=== PATIENT | male | born 1970 | race Two or more races ===

== ENCOUNTER 2025-05-09 09:39 | Emergency (ER) | payer MEDICAID, OTHER ==
[~2025-05-09] VITALS: Ht 167.6 cm; Wt 82.0 kg
[2025-05-09] MEDS: SODIUM CHLORIDE 0.9% 1,000 ML IV ONE (10:53)
[2025-05-09 11:06] LABS: Hematocrit 52.7 % (41.0-53.0); Hemoglobin 17.9 g/dL (13.5-17.5); Mean Corpuscular Hemoglobin 29.3 pg (28.0-32.0); Mean Corpuscular Volume 85.9 fL (80.0-100.0); Nucleated Red Blood Cells % 0.1 %
[2025-05-09 11:13] LABS: Chloride 104 mmol/L (98-107); Potassium 3.8 mmol/L (3.5-5.1); Sodium 142 mmol/L (136-145)
[2025-05-09 11:14] VITALS: BP 132/83; PULSE 79; RESP 18; TEMP 98.7; O2SAT 97
[2025-05-09 11:14] LABS: Anion Gap 9 (5-15); Calcium 9.6 mg/dL (8.7-10.4); Carbon Dioxide 29 mmol/L (20-31)
[2025-05-09 11:19] LABS: BUN/Creatinine Ratio 13.6 (10.0-20.0); Blood Urea Nitrogen 19 mg/dL (9-23); Glucose 104 mg/dL (74-106)
--- NOTE | 2025-05-09 11:19 | ED.PDOC ---
HPI (NEURO) HPI Comments 54 y/o M with a history of hypertension brought in by EMS from home after a syncopal episode. Patient states he was working outside laying concrete in the heat when he began to feel lightheaded, broke out in a cold sweat, then felt as if he was going to pass out. He told his to call 911. He states he has had 2 similar previous episodes in the past where he actually fainted, so was able to get to the ground without injuring himself. EMS administered IV normal saline, and now the patient states he feels better. He denies any recent illness, chest pain, shortness of breath, vision changes or focal weakness. Chief Complaint: General Weakness Time Seen by MD: 10:30 Reviewed Notes: Nurses Notes, Medications, Allergies Information Source: Patient Mode of Arrival: Ambulatory Past Medical History PAST MEDICAL HISTORY: HTN Surgical History: Denies all surgeries Family History Family History: Unknown Social History Smoker: Non-Smoker Alcohol: Denies ETOH Use Drugs: Denies Drug Use Lives In: Home All Other Systems: Reviewed and Negative (Comprehensive systems review obtained and negative except for what is stated in the HPI.) Physical Exam General Appearance: No Apparent Distress HEENT: Other (Pupils and face symmetric. Moist mucous membranes.) Neck: Full Range of Motion, Normal Inspection Respiratory: Lungs Clear, No Accessory Muscle Use, No Respiratory Distress, Normal Breath Sounds Cardiovascular: No Edema, No JVD, Regular Rate/Rhythm Breast Exam: Deferred Gastrointestinal: Non Tender, Soft Genitalia: Deferred Pelvic: Deferred Rectal: Deferred Extremities: Normal inspection, Normal range of motion, Non-tender, No pedal edema Neurologic: Alert (Oriented x4), Normal Affect, Normal Mood, Other (Ambulatory) Cerebellar Function: NOT DONE Reflexes: NOT DONE Skin: Dry, Normal Color, Warm Lymphatic: NOT DONE EKG EKG : Comments Sinus rhythm, rate 82, normal intervals, normal axis, normal QRS, nonspecific T change. Was a procedure done? Was a procedure done?: No Differential Diagnosis (SZ) Seizure: N/A General Weakness: Anemia, Dehydration, Dysrhythmia, Electrolyte imbalance, Hypoglycemia, Hypotension, Hypovolemia, Myocardial infarction, TIA, Vertigo: central, Vertigo: peripheral, Other (Vasovagal) Headache: N/A X-Ray, Labs, Meds, VS Vital Signs Date Time Temp Pulse Resp B/P (MAP) Pulse Ox O2 Delivery O2 Flow Rate FiO2 05/09/25 11:14 79 18 97 Room Air 05/09/25 11:14 98.7 79 18 132/83 (99) 97 98.7 05/09/25 09:50 98.6 77 16 130/78 99 98.6 05/09/25 09:45 82 Lab Test 05/09/25 10:30 Range/Units White Blood Count 7.1 4.4-10.8 10^3/uL Red Blood Count 6.14 H 4.5-5.90 10^6/uL Hemoglobin 17.9 H 13.5-17.5 g/dL Hematocrit 52.7 41.0-53.0 % Mean Corpuscular Volume 85.9 80.0-100.0 fL Mean Corpuscular Hemoglobin 29.3 28.0-32.0 pg Mean Corpuscular Hemoglobin Concent 34.1 32.0-36.0 g/dL Red Cell Distribution Width 12.8 11.8-14.3 % Platelet Count 212 140-450 10^3/uL Mean Platelet Volume 8.9 6.9-10.8 fL Neutrophils (%) (Auto) 76.2 37.0-80.0 % Lymphocytes (%) (Auto) 15.4 10.0-50.0 % Monocytes (%) (Auto) 6.4 0.0-12.0 % Eosinophils (%) (Auto) 1.4 0.0-7.0 % Basophils (%) (Auto) 0.6 0.0-2.0 % Neutrophils # (Auto) 5.4 1.6-8.6 10 ^3/uL Lymphocytes # (Auto) 1.1 0.4-5.4 10 ^3/uL Monocytes # (Auto) 0.5 0-1.3 10 ^3/uL Eosinophils # (Auto) 0.1 0-0.8 10 ^3/uL Basophils # (Auto) 0 0-0.2 10 ^3/uL Nucleated Red Blood Cells 0.1 % Sodium Level 142 136-145 mmol/L Potassium Level 3.8 3.5-5.1 mmol/L Chloride Level 104 98-107 mmol/L Carbon Dioxide Level 29 20-31 mmol/L Anion Gap 9 5-15 Blood Urea Nitrogen 19 9-23 mg/dL Creatinine 1.40 H 0.700-1.30 mg/dL Glomerular Filtration Rate Calc 60 >90 mL/min BUN/Creatinine Ratio 13.6 10.0-20.0 Serum Glucose 104 74-106 mg/dL Calcium Level 9.6 8.7-10.4 mg/dL Troponin I High Sensitivity 6 </=54 ng/L B-Type Natriuretic Peptide < 0 0-100 pg/mL Current Medications Medications (Trade) Dose Ordered Sig/Adryan Route Start Time Stop Time Status Last Admin Sodium Chloride 1,000 ml @ 1,000 mls/hr Q1H ONCE IV 05/09/25 10:45 05/09/25 11:44 05/09/25 10:53 X-Ray, Labs, Meds, VS Comment 54-year-old male with a history of hypertension presenting with dizziness and a near syncopal episode while working in the heat Vitals unremarkable Exam unremarkable Rhythm strip independently interpreted by me: Sinus rhythm, rate 82, no ectopy. CBC unremarkable, basic metabolic panel remarkable for creatinine 1.4, BNP and troponin negative Patient treated with the following in the ED: 1 L 0.9 normal saline IV bolus On re-evaluation, patient was neurologically intact and stated he was feeling back to normal. Vitals were stable. Hospitalization was considered, however patient had rapid improvement of s ymptoms with treatment by EMS and in the ED, and I no longer feel hospitalization is necessary. Patient now appears stable for discharge with close outpatient follow-up with his primary physician. Time of 1ST Reevaluation: 11:00 Reevaluation 1ST: Unchanged Patient Education/Counseling: Diagnosis, Treatment, Need For Follow Up Family Education/Counseling: No Family Present Departure 1 Departure Time of Disposition: 11:48 Impression: Primary Impression: Pre-syncope Disposition: 01 HOME / SELF CARE / HOMELESS Condition: Stable Additional Instructions: Your blood tests, including screening test for heart attack and heart failure, were unremarkable. Your EKG was unremarkable. Follow-up with your primary doctor in 1-2 days. Return to ER for persistent or worsening symptoms. Discharged With: Self Critical Care Note Critical Care Time?: No Stability Stability form required: No Heart Score Heart Score: Heart Score Response (Comments) Value History N/A 0 EKG N/A 0 Age N/A 0 Risk Factors N/A 0 Troponin N/A 0 Total 0 I personally scribed for HAKEEM TORRES MD ([email or web address]) on 05/09/25 at 11:19. Electronically submitted by Raymundo Wong ([email or web address]). HAKEEM TORRES MD May 09, 2025 11:19
[2025-05-09] MEDS ORDERED: ONDANSETRON HCL 4 MG/2 ML VIAL IV ONE (11:45)
[2025-05-09] MEDS ORDERED: MORPHINE SULFATE 4 MG/ML SYR/VIAL IV ONE (11:45)
[2025-05-09 11:55] LABS: Urine Protein, UAD Negative (Negative)
--- NOTE | 2025-05-09 18:59 | ECG ---
[facility] Test Date: 2025-05-09 Test Time: 09:42:53 Pat Name: JULIAN TAYLOR Department: ED Room: Gender: M [employer] Investigator: JULIANNA : 1970 Requested By: HAKEEM SAUL Order Number: [id number] Reading MD: Luca Langley Measurements Intervals [place] Rate: 82 P: 49 DC: 161 QRS: 27 QRSD: 84 T: -1 QT: 364 QTc: 425 Interpretive Statements Sinus rhythm Nonspecific T abnormalities, inferior leads Electronically Signed On 05-11-2025 22:53:18 PDT by Luca Langley Please click the below link to view image of tracing.
== END 2025-05-09 11:58 | disposition home or self-care (01) ==
LOC: EDBD 09:39 → ER 09:39
DX: R55 Syncope and collapse (principal); I10 Essential (primary) hypertension
CPT/HCPCS: 36415; 80048; 81001; 83880; 84484; 85025; 93005; 96360; 99284; J7030